=== PATIENT | female | born 2000 | race Two or more races ===

== ENCOUNTER 2019-06-02 16:59 | Emergency (ER) | payer BC ==
[~2019-06-02] VITALS: Ht 172.7 cm; Wt 68.0 kg
--- NOTE | 2019-06-02 17:20 | NUR ---
PATIENT WAS SEEN BY . URINE AND THROAT SWAB SENT TO LAB
[2019-06-02 17:28] LABS: *URINE HCG, QUAL NEGATIVE (NEGATIVE)
[2019-06-02 17:30] LABS: *BILIRUBIN,URIN NEGATIVE (NEGATIVE); *COLOR,URINE YELLOW (YELLOW); *KETONES,URINE NEGATIVE (NEGATIVE); LEUKOCYTE ESTERASE ,URINE NEGATIVE (NEGATIVE); NITRITE, URINE NEGATIVE (NEGATIVE); UGLUCOSE NEGATIVE (NEGATIVE)
[2019-06-02] MEDS ORDERED: AZITHROMYCIN 250 MG TABLET PO ONE (17:30)
[2019-06-02] MEDS ORDERED: CEFTRIAXONE 500 MG VIAL IM ONE (17:30)
[2019-06-02] MEDS ORDERED: LIDOCAINE HCL 1% 20 ML VIAL ONE (17:35)
[2019-06-02 17:36] LABS: *BLOOD, URINE TRACE (NEGATIVE); *CLARITY,URINE HAZY (CLEAR)
[2019-06-02] MEDS ORDERED: AZITHROMYCIN 250 MG TABLET ONE (17:36)
[2019-06-02] MEDS ORDERED: CEFTRIAXONE 500 MG VIAL ONE (17:36)
[2019-06-02 17:37] LABS: MUCUS,URINE MANY /LPF (0-FEW); SQUAMOUS EPITHELIAL CELL,UR MODERATE /HPF (NONE SEEN); URINE AMORPHOUS PHOSPHATES FEW /HPF
--- NOTE | 2019-06-02 17:55 | NUR ---
DC, RX AND FOLLOW UP INSTRUCTIONS GIVEN AND EXPLAINED TO PATIENT WHO STATES SHE UNDERSTAND ALL INSTRUCTIONS.
[2019-06-05 14:06] LABS: *GC NAA Negative (Negative); *TRIC.VAG. NAA Negative (Negative)
== END 2019-06-02 18:04 | disposition home or self-care (01) ==
LOC: ER 17:04
DX: J02.9 Acute pharyngitis, unspecified (principal); N39.0 Urinary tract infection, site not specified; J45.909 Unspecified asthma, uncomplicated
CPT/HCPCS: 36415; 81000; 81001; 84703; 86403; 87070; 87086; 87491; 96372; 99283; J0696; J3490; A4663; Q0144

== ENCOUNTER 2021-03-24 15:32 | Emergency (ER) | payer BC ==
[~2021-03-24] VITALS: Ht 165.1 cm; Wt 72.6 kg
--- NOTE | 2021-03-24 15:37 | NUR ---
[email or web address], medical screening exam in progress
[2021-03-24] MEDS ORDERED: ACETAMINOPHEN 325 MG TABLET PO ONE (15:45)
[2021-03-24] MEDS ORDERED: ACETAMINOPHEN 325 MG TABLET ONE (15:48)
[2021-03-24 16:10] LABS: *URINE HCG, QUAL NEGATIVE (NEGATIVE)
--- NOTE | 2021-03-24 16:32 | NUR ---
Patient moved from room 5A to 4B, pending disposition, NAD. Patient is resting comfortably on gurney while using her personal electronic device.
[2021-03-24] MEDS ORDERED: ACET-2154 PO (16:49)
[2021-03-24] MEDS ORDERED: GUAI600T53 PO (16:49)
--- NOTE | 2021-03-24 16:57 | NUR ---
Patient discharged to home in stable condition with brisk steady gait. Written and verbal after care instructions given to patient. Patient verbalized understanding & compliance of instructions. Stressed follow up with primary doctor (Nicola) or return to ER for worsening s/s.
== END 2021-03-24 16:58 | disposition home or self-care (01) ==
LOC: ER 15:33
DX: J02.8 Acute pharyngitis due to other specified organisms (principal); Z20.822 Contact with and (suspected) exposure to COVID-19; J45.909 Unspecified asthma, uncomplicated
CPT/HCPCS: 84703

== ENCOUNTER 2022-03-31 15:53 | Emergency (ER) | payer BC ==
[~2022-03-31] VITALS: Ht 165.1 cm; Wt 71.7 kg
[~2022-03-31 15:53] MED LIST: ACET-2154 PO; GUAI600T53 PO
[2022-03-31] MEDS ORDERED: ACETAMINOPHEN 325 MG TABLET PO ONE (16:15)
[2022-03-31] MEDS ORDERED: LIDOCAINE VISCUS 2% 15 ML UDC MM ONE (16:15)
[2022-03-31] MEDS ORDERED: LIDOCAINE VISCUS 2% 15 ML UDC ONE (16:16)
[2022-03-31] MEDS ORDERED: ACETAMINOPHEN 325 MG TABLET ONE (16:17)
--- NOTE | 2022-03-31 16:32 | NUR ---
PT SEEN AND EVALUATED BY DR MACHADO; SWAB SPECIMENS OBTAINED PER MD ORDER.
--- NOTE | 2022-03-31 16:33 | NUR ---
MEDICATED PER MD ORDER.
--- NOTE | 2022-03-31 17:45 | NUR ---
[employer] assumes care: 1st contact with patient: AOx4, She is for discharge to home by ER Dr Jack. Patient discharged to home in stable condition with brisk steady gait. Written and verbal after care instructions given to patient. Patient verbalized understanding and compliance of instructions. Stressed follow up with primary doctor or return to ER for worsening s/s.
== END 2022-03-31 17:46 | disposition home or self-care (01) ==
LOC: ER 15:53
DX: J02.8 Acute pharyngitis due to other specified organisms (principal); B97.89 Other viral agents as the cause of diseases classified elsewhere; Z20.822 Contact with and (suspected) exposure to COVID-19; J45.909 Unspecified asthma, uncomplicated
CPT/HCPCS: 86403; 87070; A4663